=== PATIENT | male | born 1985 | race Caucasian/White ===

== ENCOUNTER → 2018-04-24 18:40 | Emergency (ER) | payer BC ==
--- NOTE | 2018-04-24 19:44 | ED ---
Lower Extremity - HPI Summary HPI Summary: 32-year-old male presents with right foot/ankle injury today. He states he rolled it on a hover board. He denies any previous fracture to the area. He states he is able to ambulate with pain. No numbness or tingling. No knee pain. No other injury. Has tried ibuprofen for his pain. He works driving a truck. Has no medical conditions. - History of Current Complaint Chief Complaint: EDExtremityLower Stated Complaint: RT FOOT INJURY Time Seen by Provider: 04/24/18 18:54 Pain Intensity: 8 - Allergies/Home Medications Allergies/Adverse Reactions: Allergies Allergy/AdvReac Type Severity Reaction Status Date / Time No Known Allergies Allergy Verified 04/24/18 18:53 Home Medications: Home Medications NK [No Home Medications Reported] 04/24/18 [History Confirmed 04/24/18] PMH/Surg Hx/FS Hx/Imm Hx Endocrine/Hematology History: Denies: Hx Anticoagulant Therapy Cardiovascular History: Denies: Hx Myocardial Infarction - Surgical History Surgery Procedure, Year, and Place: APPENDECTOMY Infectious Disease History: No Infectious Disease History: Denies: Hx Clostridium Difficile, Hx Hepatitis, Hx Human Immunodeficiency Virus (HIV), Hx of Known/Suspected MRSA, Hx Shingles, Hx Tuberculosis, Hx Known/ Suspected VRE, Hx Known/Suspected VRSA, History Other Infectious Disease, Traveled Outside the [place] in Last 30 Days - Family History Known Family History: Positive: Unknown - Social History Alcohol Use: Weekly Substance Use Type: Reports: None Smoking Status (MU): Heavy Every Day Tobacco Smoker Amount Used/How Often: 1.5 ppd Review of Systems Negative: Fever Negative: Chest Pain Negative: Shortness Of Breath Positive: Myalgia - right foot/ankle pain All Other Systems Reviewed And Are Negative: Yes Physical Exam Triage Information Reviewed: Yes Vital Signs On Initial Exam: Initial Vitals Temp Pulse Resp BP Pulse Ox 98.4 F 86 20 136/72 97 04/24/18 18:40 04/24/18 18:40 04/24/18 18:40 04/24/18 18:40 04/24/18 18:40 Vital Signs Reviewed: Yes Appearance: Positive: Well-Appearing Skin: Positive: Warm, Dry Head/Face: Positive: Normal Head/Face Inspection Eyes: Positive: Normal, Conjunctiva Clear ENT: Positive: Pharynx normal Respiratory/Lung Sounds: Positive: Clear to Auscultation, Breath Sounds Present Cardiovascular: Positive: Normal, RRR Musculoskeletal: Positive: Strength/ROM Intact - right ankle, Limited @ - right foot, Other - tenderness 5th metatarsal, edema present 5th metatarsal, capillary refill<2secs Neurological: Positive: Normal Psychiatric: Positive: Normal Diagnostics - Vital Signs Vital Signs Temp Pulse Resp BP Pulse Ox 04/24/18 18:40 98.4 F 86 20 136/72 97 - Laboratory Lab Statement: Any lab studies that have been ordered have been reviewed, and results considered in the medical decision making process. - Radiology foot/ankle Radiology Interpretation Completed By: ED Physician Summary of Radiographic Findings: no fx Lower Extremity Course/Dx - Course Course Of Treatment: 32-year-old male presents with right foot/ankle injury today. He states he rolled it on a hover board. He denies any previous fracture to the area. He states he is able to ambulate with pain. No numbness or tingling. No knee pain. No other injury. Has tried ibuprofen for his pain. He works driving a truck. Has no medical conditions. On exam has tenderness over the right fifth metatarsal. Neurovascular intact. X-ray read by me as normal. Gave cam walking boot. Told to ice and elevate. Patient understands and agrees with plan. - Diagnoses Differential Diagnosis/HQI/PQRI: Positive: Fracture (Closed), Sprain, Strain Provider Diagnoses: Right foot injury Discharge - Sign-Out/Discharge Documenting (check all that apply): Patient Departure - Discharge Plan Condition: Good Disposition: HOME Patient Education Materials: Foot Sprain (ED) Referrals: No Primary Care Phys,NOPCP [Primary Care Provider] - Additional Instructions: keep boot on area Stay off ankle as much as possible Ice, elevate Ibuprofen every 6 hours for pain Follow up with primary if no improvement Return to ED if develop or any new or worsening symptoms - Billing Disposition and Condition Condition: GOOD Disposition: Home
[2018-04-24 21:33] VITALS: BP 114/62
== END | disposition home or self-care (01) ==
LOC: ED 18:40
DX: S99.921A Unspecified injury of right foot, initial encounter (principal); X50.9XXA Other and unspecified overexertion or strenuous movements or postures, initial encounter; Y92.9 Unspecified place or not applicable; Y93.89 Activity, other specified; F17.210 Nicotine dependence, cigarettes, uncomplicated
CPT/HCPCS: 99282

== ENCOUNTER 2018-06-14 21:54 | Emergency (ER) | payer BC ==
[2018-06-14] MEDS ORDERED: oxyCODONE/Acetamin 5/325 MG* TAB PO ONE (22:19)
[2018-06-14] MEDS ORDERED: Cyclobenzaprine TAB* 10 MG PO ONE (22:19)
[2018-06-14] MEDS ORDERED: Ketorolac INJ* 30 MG/ML 1 ML VIAL IM ONE (22:19)
--- NOTE | 2018-06-14 22:22 | ED ---
Back Pain - HPI Summary HPI Summary: Pt is a 32 y/o M presenting to the ED with a chief complaint of back pain onset 06/06/18 in his lower back, and he feels like something moves when he moves. Pt denies lifting or moving in a way that caused the pain. 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 He denies pain in legs, numbness, tingling, or urinary symptoms. He also denies any hx of back trauma or back issues. - History of Current Complaint Chief Complaint: EDBackInjuryPain Stated Complaint: BACK PAIN Time Seen by Provider: 06/14/18 22:12 Hx Obtained From: Patient Onset/Duration: Sudden Onset, Lasting Weeks, Still Present Onset/Duration: Started Weeks Ago, Still Present Timing: Constant Back Pain Location: Is Discrete @ - lower back Severity Initially: Moderate Severity Currently: Moderate Pain Intensity: 8 Pain Scale Used: 0-10 Numeric Character: Sharp Aggravating Symptom(s): Movement, Lifting, Bending, Walking Alleviating Symptom(s): Rest Associated Signs And Symptoms: Negative: Numbness, Tingling, Bladder Incontinence, Other - leg pain - Allergies/Home Medications Allergies/Adverse Reactions: Allergies Allergy/AdvReac Type Severity Reaction Status Date / Time No Known Allergies Allergy Verified 06/14/18 22:00 PMH/Surg Hx/FS Hx/Imm Hx Previously Healthy: Yes Endocrine/Hematology History: Denies: Hx Anticoagulant Therapy Cardiovascular History: Denies: Hx Myocardial Infarction - Surgical History Surgery Procedure, Year, and Place: APPENDECTOMY Infectious Disease History: No Infectious Disease History: Denies: Hx Clostridium Difficile, Hx Hepatitis, Hx Human Immunodeficiency Virus (HIV), Hx of Known/Suspected MRSA, Hx Shingles, Hx Tuberculosis, Hx Known/ Suspected VRE, Hx Known/Suspected VRSA, History Other Infectious Disease, Traveled Outside the [place] in Last 30 Days - Family History Known Family History: Negative: Hypertension - Social History Occupation: Employed Full-time - trucker Alcohol Use: Weekly Substance Use Type: Reports: None Smoking Status (MU): Heavy Every Day Tobacco Smoker Amount Used/How Often: 1.5 ppd Review of Systems Negative: Fever Positive: no symptoms reported Positive: Myalgia Negative: Paresthesia, Numbness All Other Systems Reviewed And Are Negative: Yes Physical Exam - Summary Physical Exam Summary: VITAL SIGNS: Reviewed. GENERAL: Patient is a well-developed and nourished male who is lying comfortable in the stretcher. Patient is not in any acute respiratory distress. HEAD AND FACE: No signs of trauma. No ecchymosis, hematomas or skull depressions. No sinus tenderness. EYES: PERRLA, EOMI x 2, No injected conjunctiva, no nystagmus. EARS: Hearing grossly intact. Ear canals and tympanic membranes are within normal limits. MOUTH: Oropharynx within normal limits. NECK: Supple, trachea is midline, no adenopathy, no JVD, no carotid bruit, no c- spine tenderness, neck with full ROM. CHEST: Symmetric, no tenderness at palpation LUNGS: Clear to auscultation bilaterally. No wheezing or crackles. CVS: Regular rate and rhythm, S1 and S2 present, no murmurs or gallops appreciated. ABDOMEN: Soft, non-tender. No signs of distention. No rebound no guarding, and no masses palpated. Bowel sounds are normal. EXTREMITIES: FROM in all major joints, no edema, no cyanosis or clubbing. BACK: Mild lumbar-sacral tenderness. Bilateral leg raise test is negative. NEURO: Alert and oriented x 3. No acute neurological deficits. Speech is normal and follows commands. SKIN: Dry and warm Triage Information Reviewed: Yes Vital Signs On Initial Exam: Initial Vitals Temp Pulse Resp BP Pulse Ox 97.7 F 90 16 133/97 98 06/14/18 21:55 06/14/18 21:55 06/14/18 21:55 06/14/18 21:55 06/14/18 21:55 Vital Signs Reviewed: Yes Diagnostics - Vital Signs Vital Signs Temp Pulse Resp BP Pulse Ox 06/14/18 21:55 97.7 F 90 16 133/97 98 - Laboratory Lab Statement: Any lab studies that have been ordered have been reviewed, and results considered in the medical decision making process. Back Pain Course/Dx - Course Course Of Treatment: Pt is a 32 y/o M presenting to the ED with a chief complaint of back pain onset 06/06/18 in his lower back, and he feels like something moves when he moves. The pt denies any hx of back trauma or issues. Upon examination, mild lumbar sacral tenderness noted. Bilateral leg raise test was negative. The pt will be discharged with pain medication prescribed. No pain medication given in the ED as the pt drove himself here. - Diagnoses Provider Diagnoses: Low back pain Discharge - Sign-Out/Discharge Documenting (check all that apply): Patient Departure Patient Received Moderate/Deep Sedation with Procedure: No - Discharge Plan Condition: Stable Disposition: HOME Prescriptions: Cyclobenzaprine TAB* [Flexeril 10 MG TAB*] 10 mg PO TID PRN #20 tab PRN Reason: Spasms - Back Ibuprofen TAB* [Motrin TAB* 800 MG] 800 mg PO Q6H PRN #30 tab PRN Reason: Pain - Back Referrals: [facility] [place] [facility] [Outside] Additional Instructions: PLEASE TAKE YOUR PRESCRIBED MEDICATIONS INSTRUCTED. RETURN TO THE EMERGENCY DEPARTMENT FOR CHANGING OR WORSENING SYMPTOMS. FOLLOW UP WITH PCP IN 1-2 DAYS. - Billing Disposition and Condition Condition: STABLE Disposition: Home - Attestation Statements Document Initiated by Samir: Yes Documenting Scribe: Anali Kennedy Provider For Whom Samir is Documenting (Include Credential): Markell Hare MD. Scribe Attestation: Anali Garduno scribed for Markell Hare MD. on 06/15/18 at 0607. Scribe Documentation Reviewed: Yes Provider Attestation: The documentation as recorded by the Anali buckner accurately reflects the service I personally performed and the decisions made by Rodo garcía MD. Status of Scribe Document: Viewed
[2018-06-14 22:46] VITALS: BP 00/00
== END 2018-06-14 22:45 | disposition home or self-care (01) ==
LOC: ED 21:54
DX: M54.5 Low back pain (principal); F17.210 Nicotine dependence, cigarettes, uncomplicated
CPT/HCPCS: 99282; A9270-GY; J1885

== ENCOUNTER 2018-12-28 20:36 | Emergency (ER) | payer BC ==
[2018-12-28 22:31] VITALS: BP 141/83
== END 2018-12-28 23:16 | disposition left against medical advice (07) ==
LOC: ED 20:36
DX: Z53.21 Procedure and treatment not carried out due to patient leaving prior to being seen by health care provider (principal)
CPT/HCPCS: 99282